=== PATIENT | male | born 1930 | race Caucasian/White ===

== ENCOUNTER 2017-05-05 11:21 | Day surgery (SDC) | payer MEDICARE, BC ==
[~2017-05-05] VITALS: Ht 170.2 cm; Wt 88.5 kg
[~2017-05-05 11:21] MED LIST: ASPIRIN81 M2 PO; CHLORTHALIDONE25 MG PO; LISINOPRIL20 MG PO; SIMVASTATIN40 MG PO
--- NOTE | 2017-05-05 12:45 | Operative Note ---
Upper GI Endoscopy Procedure date: 05/05/17 Date of : 30 Procedure:Upper GI Endoscopy Esophagogastroduodenoscopy with cold biopsies and TTS balloon dilation Indications: Mr. Quintero is an 86-year-old gentleman with epigastric abdominal pain, bloating , belching and some food regurgitation. He does have obstipation with incomplete defecation. The patient does state that he had an EGD and colonoscopy in [address] Patrick Falcon and did have colon polyps. The patient reports some fullness/early satiety. He reports no heartburn symptoms. He is on the fiber bowel regimen (MiraLAX plus Metamucil) but still has to supplement with milk of magnesia. He reports no dysphagia. Performing Provider: Loida Gould MD Referring Provider: Joy Whiting M.D. Sedation: MAC sedation Procedure: Prior to the procedure, a history and physical exam was performed, and patients medications and allergies were reviewed. The risks and benefits of the procedure and the sedation options and risks were discussed with the patient. All questions were answered and informed consent was obtained. The patient was brought to the procedure room. Patient identification and proposed procedure were verified by the physician and the nurse. The patient was placed in a left lateral decubitus position and the scope was passed under direct vision. Throughout the procedure, the patient's blood pressure, pulse, and oxygen saturations were monitored continuously. The endoscope was introduced through the mouth, and advanced to the second part of duodenum. The upper GI endoscopy was accomplished without difficulty. The patient tolerated the procedure well. Findings: The scope was passed directly into the upper esophagus and advanced to the third portion of the duodenum. The post bulbar duodenum and duodenal bulb were normal with normal mucosa and conniventes. The scope was withdrawn through a normal duodenal bulb and pylorus into the stomach. There was some mild linear erythema of the antrum. There was mild atrophy of the body and fundus. There was some extrinsic compression of the anterior surface of the stomach in the mid body. Upon retroflexion there was a very small sliding 1-2 cm hiatal hernia. 2 biopsies were taken along the greater curvature and body of the stomach for histology. The scope was then withdrawn into the esophagus. There was evidence of reflux esophagitis (grade A LA classification). There were tertiary contractions and mild esophageal dysmotility. The entire esophagus was dilated to 60 Albanian/20 mm with a TTS hydrostatic balloon. The remainder of the esophageal mucosa was normal. Immediate complications: None EBL (ml): 0 Impression: 1. Grade A reflux esophagitis (LA classification) with very small sliding hiatal hernia and mild esophageal dysmotility 2. Mild linear reactive gastritis with some gastric atrophy Recommendations: I will follow-up the biopsies to exclude H. pylori. I would recommend PPI therapy plus low-dose promotility therapy. I will increase the fiber bowel regimen (MiraLAX plus Metamucil twice a day). at [id number]
[2017-05-05 14:46] VITALS: BP 126/75
== END 2017-05-05 14:00 | disposition home or self-care (01) ==
LOC: SDC 11:21
PROVIDERS: Internal Medicine Gastroenterology
PROC: 0D758ZZ Dilation of Esophagus, Via Natural or Artificial Opening Endoscopic (ICD-10-PCS; 2017-05-05)
PROC: 0DB78ZX Excision of Stomach, Pylorus, Via Natural or Artificial Opening Endoscopic, Diagnostic (ICD-10-PCS; principal; 2017-05-05 12:30)
DX: K21.0 Gastro-esophageal reflux disease with esophagitis (principal); K44.9 Diaphragmatic hernia without obstruction or gangrene; K29.60 Other gastritis without bleeding; K22.4 Dyskinesia of esophagus
CPT/HCPCS: C1726